=== PATIENT | male | born 1945 | race Caucasian/White ===

== ENCOUNTER 2023-11-03 10:45 | Emergency (ER) | payer MEDICARE, BC, SELFPAY ==
[2023-11-03 10:53] VITALS: BP 130/75
--- NOTE | 2023-11-03 11:09 | ED.GENMED ---
History of Present Illness
General
Chief Complaint: Fall
Source: patient and spouse
Exam Limitations: none
Time Seen by Provider: 11/03/23 10:59
Travel History
Have you had any contact with someone who has COVID-19?: No
Do you have any symptoms of coronavirus? Fever > 100 degrees, chills, cough, shortness of breath, sore throat, loss of taste or smell, muscle aches, or headache?: No
History of Present Illness
History of Present Illness:
78-year-old male tripped and fell causing a oblique abrasion to his forehead left hand laceration abrasion to left elbow and a contusion to left knee. No LOC. No syncope. Last tetanus is less than 5. He is on Eliquis. No neck pain no other
trauma. No severe general headache no vomiting no other neurologic symptoms. Head injury is described as relatively minor
Past History
Past History
ED Past Medical History: Arrthythmia (Atrial fibrillation), CVA and HTN
ED Past Surgical History: None
Social History
Tobacco: Non-smoker
Alcohol: None
Drug: None
Living: with family
Review of Systems
Review of Systems
All Other Systems: Not applicable
Respiratory: Reports no symptoms
Cardiac: Reports no symptoms
Phy Exam
Physical Exam
Physical Exam:
TRAUMA EXAM:
VITAL SIGNS: Vital signs reviewed, cooperative
DISTRESS: No active disease
EYES: Pupils reactive, no orbital trauma
NOSE: No deformity or epistaxis
FACE AND SCALP: No scalp trauma, external canals no blood. Contusion abrasion to the left forehead. No large hematoma.
NECK: Supple nontender
RESPIRATORY: No distress, breath sounds normal, no tender chest wall
CARDIAC: No murmur, pulses equal and strong
ABDOMEN: Soft nontender bowel sounds normal
SKIN: Superficial abrasion to the left elbow. T shaped jagged laceration at the distal fifth metacarpal on the palmar aspect of the left hand. 4 cm
EXTREMITIES: No severe bony tenderness. Laceration to the left ground hand. Decreased flexion at the left fifth digit but this is a trigger finger and old. No deep bony tenderness. No deep bony tenderness to the left elbow. Good range of motion.
NEUROLOGICAL: Alert, oriented, no motor deficits
PSYCH: Mood affect normal
Course
Orders/Labs/Results
Orders:
Orders
11/03/23 10:56
CT Head W/o Iv Contrast Urgent
Comment:
Reason For Exam: fall on eliquis
11/03/23 11:08
Hand, Left 3 View [CR Hand - Left Min 3 Views] Urgent
Comment:
Reason For Exam: trauma
11/03/23 12:05
Cephalexin Monohydrate [Keflex] 500 mg PO NOW STA
Vital Signs
Initial and Last Documented VS:
Initial Vital Signs
Temp Pulse Resp BP Pulse Ox
98.2 F 63 20 130/75 98
11/03/23 10:53 11/03/23 10:53 11/03/23 10:53 11/03/23 10:53 11/03/23 10:53
Last Documented Vital Signs
Temp Pulse Resp BP Pulse Ox
98.2 F 63 20 130/75 98
11/03/23 10:53 11/03/23 10:53 11/03/23 10:53 11/03/23 10:53 11/03/23 10:53
Procedures
Laceration Closure
Left Lateral Palmar Hand:
Status of Wound: imbedded foreign material
Size of Wound in cm: 4
Description of Wound Edges: ragged
Preparation: cleaned with saline and cleaned with Betadine
Anesthesia: 1% Lidocaine
Revision/Debridement: minor revision and irrigate-direct pressure
Wound exploration: extensive cleaning of contaminated wound, foreign body removed and no tendon involvement
Type of Closure: single layer closure
Skin Closure Material: 5-0 nylon
Number of sutures: 9
MDM/Problems Addressed
Differential Diagnosis Includes:
Mild head injury on Eliquis. Neurologically stable. We will get a CT scan. If stable given the nontoxic appearance lack of symptoms, does not warrant observation for second CT. Laceration will be repaired. We will x-ray the left hand. No other
bony abnormality.
*Radiology
Radiology exam reviewed: radiology read reviewed (Negative head CT) and other (Multiple small foreign bodies)
*Pulse Oximetry
Patient hypoxic: no
*Critical Care Note
Total Time (30-74mins, 75-104mins- exclusive of procedures): Not Applicable
ED Attending Note
-
Portions of this chart may have been created with voice recognition software.� Occasional wrong word or��sound alike� substitutions may have occurred due to the inherent limitations of voice recognition software.
Discharge Plan
Departure
Patient Disposition: Home (Routine Discharge)
Date of Disposition: 11/03/23
Time of Disposition: 12:07
Patient with high blood pressure during this ER visit?: Yes
Discharge Problem:
Left hand laceration, Minor head injury/anticoagulated, contusion, abrasion
Instructions: Head Injury in Adults (DC), Contusion (DC), Laceration Repair With Stitches (DC), Skin Abrasions (DC), BLOOD PRESSURE
Prescriptions:
New
cephalexin 500 mg capsule
500 mg PO QID 7 Days Qty: 28 0RF
No Action
trazodone 50 MG tablet
100 mg PO HS
amiloride 5 MG tablet
5 mg PO DAILY
dicyclomine 10 MG capsule
10 mg PO BID
vit C,Y-Ok-szqgs-lutein-zeaxan [PreserVision AREDS-2] 1 EACH capsule
1 ea PO BID
metoprolol succinate 50 MG tablet extended release 24 hr
50 mg PO BID
allopurinol 100 MG tablet
100 mg PO DAILY
potassium chloride [Klor-Con M20] 20 MEQ tablet,ER particles/crystals
20 meq PO BID
amlodipine 10 MG tablet
10 mg PO DAILY
hydrochlorothiazide 25 MG tablet
12.5 mg PO DAILY
cholecalciferol (vitamin D3) 2,000 UNITS tablet
2,000 units PO DAILY
atorvastatin 40 MG tablet
40 mg PO QPM Qty: 30 0RF
amlodipine 10 MG tablet
10 mg PO DAILY 0RF
cholecalciferol (vitamin D3) 2,000 UNITS tablet
2,000 units PO DAILY 0RF
apixaban [Eliquis] 5 MG tablet
5 mg PO BID 30 Days Qty: 60 0RF
Referrals:
Phil Valenzuela MD [Family Provider] - Follow up in 2-3 days
Interventions
Interventions:
*Risk Screen - Suicide Last Done: 11/03/23 10:53
*General Assessment Last Done: 11/03/23 10:53
*Neglect/Abuse Screening Last Done: 11/03/23 10:53
ED- Fall Risk Assessment Last Done: 11/03/23 11:01
*ED COVID-19 Vaccine History Last Done: 11/03/23 11:00
ED-Musculoskeletal Assessment Last Done: 11/03/23 11:01
ED- Neurological Assessment Last Done: 11/03/23 11:01
ED-Skin Assessment Last Done: 11/03/23 11:01
Discharge Date and Time
Print Language: SCOTTISH
[2023-11-03] MEDS: KEFLEX 500 MG PO (12:13)
== END 2023-11-03 12:23 | disposition home or self-care (01) ==
LOC: EMR 10:45
PROVIDERS: EMERGENCY PHYSICIAN Emergency Medicine; FAMILY PHYSICIAN Family Medicine
DX: S61.412A Laceration without foreign body of left hand, initial encounter (principal); S09.90XA Unspecified injury of head, initial encounter; S60.222A Contusion of left hand, initial encounter; S00.83XA Contusion of other part of head, initial encounter; S80.212A Abrasion, left knee, initial encounter; S00.81XA Abrasion of other part of head, initial encounter; S50.312A Abrasion of left elbow, initial encounter; W01.0XXA Fall on same level from slipping, tripping and stumbling without subsequent striking against object, initial encounter; I48.91 Unspecified atrial fibrillation; I10 Essential (primary) hypertension; Z79.01 Long term (current) use of anticoagulants; Z86.73 Personal history of transient ischemic attack (TIA), and cerebral infarction without residual deficits
CPT/HCPCS: 99284; 12001; 70450; 73130

== ENCOUNTER → 2024-02-15 08:20 | Outpatient (REF) | payer MEDICARE, BC, SELFPAY ==
[2024-02-15 09:41] LABS: Urine Albumin Negative (Neg - Trace); Urine Bilirubin Negative (Negative); Urine Character Clear (Clear); Urine Color Yellow; Urine Glucose Negative (Negative); Urine Ketone Negative (Negative); Urine Leukocyte Trace (Negative); Urine Nitrite Negative (Negative); Urine Occult Blood Negative (Negative); Urine Urobilinogen Negative (Neg - 1+)
[2024-02-15 09:48] LABS: Hematocrit 39.2 % (39.0-52.0); Hemoglobin 13.4 g/dL (13.0-18.0); Mean Corp Hgb Conc. 34.2 g/dL (33.0-37.0); Mean Corpuscular Hgb 30.6 pg (27.0-31.0); Mean Corpuscular Volume 89.5 fL (80.0-94.0); Mean Platelet Volume 9.9 fL (7.4-10.4); Platelet Count 132 10^3/uL (130-400); Red Blood Cell Count 4.38 10^6/uL (4.70-6.10); Red Cell Dist. Width 12.7 % (11.5-14.5); White Blood Cell Count 8.6 10^3/uL (4.8-10.8)
[2024-02-15 09:52] LABS: Urine Mucus Few
[2024-02-15 09:53] LABS: Urine Urothelial Cell 0-2 /LPF (FEW)
[2024-02-15 09:54] LABS: Urine Hyaline Cast 0-2 /LPF (0-2)
[2024-02-15 09:55] LABS: ALT (SGPT) 20 U/L (0-50); AST (SGOT) 27 U/L (17-59); Albumin 4.2 g/dl (3.5-5.0); Alkaline Phosphatase 63 U/L (38-126); Blood Urea Nitrogen 19 mg/dl (9-20); Calcium 9.3 mg/dl (8.4-10.2); Carbon Dioxide 35 mmol/L (22-30); Chloride 96 mmol/L (98-107); Glucose 103 mg/dl (70-99); HDL Cholesterol 57 mg/dl; LDL Cholesterol, Calculated 41 mg/dl; Magnesium 2.2 mg/dl (1.6-2.3); Phosphorus 3.1 mg/dl (2.5-4.5); Potassium 3.6 mmol/L (3.5-5.1); Sodium 139 mmol/L (135-145); Total Bilirubin 1.1 mg/dl (0.2-1.3); Total Cholesterol 113 mg/dl (50-199); Total Protein 6.3 g/dl (6.3-8.2); Triglyceride 77 mg/dl (10-149); Very Low Density Lipoprotein 15 mg/dl (0-30); eGFR > 60.00
[2024-02-15 10:13] LABS: % Basophils 0.5 % (0-2); % Eosinophils 1.2 % (0-6); % Immature Granulocytes 0.1 % (0-0.5); % Lymphocytes 52.3 % (20.5-51.1); % Monocytes 6.8 % (1.7-9.3); % Neutrophils 39.1 % (42.2-75.2); Absolute Eosinophils 0.1 10^3/uL (0-0.7); Absolute Lymphocytes 4.5 10^3/uL (1.2-3.4); Absolute Monocytes 0.6 10^3/uL (0.1-0.6); Absolute Neutrophils 3.4 10^3/uL (1.4-6.5); Nucleated Red Blood Cells % 0 % (-)
[2024-02-15 10:24] LABS: PSA, Total - Screen 1.13 ng/ml (0.0-4.0)
[2024-02-17 12:03] LABS: Intact PTH 90.8 pg/ml (13.6-85.8)
== END ==
LOC: HWLAB 08:20
PROVIDERS: ATTENDING PHYSICIAN Urology; FAMILY PHYSICIAN Family Medicine; REFERRING PHYSICIAN Internal Medicine Nephrology
DX: N20.0 Calculus of kidney (principal); E78.1 Pure hyperglyceridemia; D40.0 Neoplasm of uncertain behavior of prostate; Z12.5 Encounter for screening for malignant neoplasm of prostate; E55.9 Vitamin D deficiency, unspecified
CPT/HCPCS: 36415; 74018; 80053; 80061; 81003; 81015; 82306; 83735; 83970; 84100; 85025; 87086; G0103

== ENCOUNTER → 2024-05-17 09:57 | Outpatient (REF) | payer MEDICARE, BC, SELFPAY ==
[2024-05-17 10:50] LABS: % Basophils 0.6 % (0-2); % Immature Granulocytes 0.2 % (0-0.5); % Lymphocytes 44.8 % (20.5-51.1); % Monocytes 6.1 % (1.7-9.3); % Neutrophils 47.3 % (42.2-75.2); Absolute Basophils 0.1 10^3/uL (0-0.2); Absolute Eosinophils 0.1 10^3/uL (0-0.7); Absolute Lymphocytes 3.7 10^3/uL (1.2-3.4); Absolute Monocytes 0.5 10^3/uL (0.1-0.6); Absolute Neutrophils 3.9 10^3/uL (1.4-6.5); Hematocrit 40.3 % (39.0-52.0); Hemoglobin 13.1 g/dL (13.0-18.0); Mean Corp Hgb Conc. 32.5 g/dL (33.0-37.0); Mean Corpuscular Volume 92.4 fL (80.0-94.0); Mean Platelet Volume 9.9 fL (7.4-10.4); Nucleated Red Blood Cells % 0 % (-); Platelet Count 125 10^3/uL (130-400); Red Blood Cell Count 4.36 10^6/uL (4.70-6.10); Red Cell Dist. Width 13.1 % (11.5-14.5); White Blood Cell Count 8.2 10^3/uL (4.8-10.8)
[2024-05-17 10:53] LABS: ALT (SGPT) 21 U/L (0-50); AST (SGOT) 25 U/L (17-59); Albumin 3.9 g/dl (3.5-5.0); Alkaline Phosphatase 63 U/L (38-126); Blood Urea Nitrogen 17 mg/dl (9-20); Carbon Dioxide 35 mmol/L (22-30); Chloride 97 mmol/L (98-107); Glucose 125 mg/dl (70-99); Potassium 4.3 mmol/L (3.5-5.1); Sodium 136 mmol/L (135-145); Total Bilirubin 0.7 mg/dl (0.2-1.3); Total Protein 6.2 g/dl (6.3-8.2); eGFR > 60.00
[2024-05-17 11:57] LABS: Glycohemoglobin (HgbA1c) 5.3 % (4.0-5.6)
[2024-05-18 19:25] LABS: Beta-2-Microglobulin 2.3 mg/L (<=3.0)
[2024-05-19 22:45] LABS: Albumin 3.86 g/dL (3.75-5.01); Alpha 1 Globulin 0.23 g/dL (0.19-0.46); Alpha 2 Globulin 0.59 g/dL (0.48-1.05); Free Kappa Light Chains,Quant 19.65 mg/L (3.30-19.40); Free Lambda Light Chains,Quant 11.52 mg/L (5.71-26.30); IgA 182 mg/dL (68-408); IgG 786 mg/dL (768-1632); IgM 43 mg/dL (35-263); Immunofixation Electrophoresis IFE Done; Kappa/Lambda Fr Light Ratio 1.71 (0.26-1.65); Total Protein-Electrophoresis 6.1 g/dL (6.3-8.2)
== END ==
LOC: REG 09:57
PROVIDERS: ATTENDING PHYSICIAN Internal Medicine Hematology & Oncology; FAMILY PHYSICIAN Family Medicine
DX: R73.02 Impaired glucose tolerance (oral) (principal); I63.9 Cerebral infarction, unspecified; D68.59 Other primary thrombophilia
CPT/HCPCS: 36415; 80053; 82232; 82784; 83036; 83521; 84155; 84165; 85025; 86334

== ENCOUNTER → 2024-11-22 10:53 | Outpatient (REF) | payer MEDICARE, BC, SELFPAY ==
[2024-11-22 11:41] LABS: Hematocrit 39.8 % (39.0-52.0); Hemoglobin 13.2 g/dL (13.0-18.0); Mean Corp Hgb Conc. 33.2 g/dL (33.0-37.0); Mean Corpuscular Volume 90.9 fL (80.0-94.0); Platelet Count 137 10^3/uL (130-400); Red Cell Dist. Width 12.9 % (11.5-14.5)
[2024-11-22 13:15] LABS: Nucleated Red Blood Cells % 0 % (-)
[2024-11-26 07:08] LABS: 24 Hour Urine Total Volume Random mL; Urine Collection Length Random hr
[2024-11-27 13:47] LABS: Albumin 4.05 g/dL (3.75-5.01); Free Kappa Light Chains,Quant 16.05 mg/L (3.30-19.40); Free Lambda Light Chains,Quant 10.77 mg/L (5.71-26.30); Immunofixation Electrophoresis IFE Done; Kappa/Lambda Fr Light Ratio 1.49 (0.26-1.65); Total Protein-Electrophoresis 6.5 g/dL (6.3-8.2)
== END ==
LOC: REG 10:53
PROVIDERS: ATTENDING PHYSICIAN Internal Medicine Hematology & Oncology; FAMILY PHYSICIAN Family Medicine
DX: I63.9 Cerebral infarction, unspecified (principal); D68.59 Other primary thrombophilia
CPT/HCPCS: 36415; 82784; 83520; 83521; 84155; 84156; 84165; 85025; 86334; 86335

== ENCOUNTER → 2025-02-08 12:51 | Outpatient (REF) | payer MEDICARE, BC, SELFPAY | LOC: HWRAD 12:51 | PROVIDERS: ATTENDING PHYSICIAN Urology; FAMILY PHYSICIAN Family Medicine; REFERRING PHYSICIAN Internal Medicine Nephrology | DX: N20.0 Calculus of kidney (principal); R31.1 Benign essential microscopic hematuria | CPT/HCPCS: 74018 ==

== ENCOUNTER → 2025-05-04 14:42 | Outpatient (REF) | payer MEDICARE, BC, SELFPAY ==
[2025-05-04 16:01] LABS: Hematocrit 38.7 % (39.0-52.0); Hemoglobin 12.8 g/dL (13.0-18.0); Mean Corp Hgb Conc. 33.1 g/dL (33.0-37.0); Mean Corpuscular Volume 89.6 fL (80.0-94.0); Red Cell Dist. Width 13.0 % (11.5-14.5)
[2025-05-04 16:15] LABS: Nucleated Red Blood Cells % 0 % (-); Platelet Count 128 10^3/uL (130-400)
[2025-05-07 03:00] LABS: Free Kappa Light Chains,Quant 20.86 mg/L (3.30-19.40); Free Lambda Light Chains,Quant 13.57 mg/L (5.71-26.30); Kappa/Lambda Fr Light Ratio 1.54 (0.26-1.65)
== END ==
LOC: REG 14:42
PROVIDERS: ATTENDING PHYSICIAN Internal Medicine Hematology & Oncology; FAMILY PHYSICIAN Family Medicine
DX: C43.71 Malignant melanoma of right lower limb, including hip (principal); C44.229 Squamous cell carcinoma of skin of left ear and external auricular canal; I63.9 Cerebral infarction, unspecified; D68.59 Other primary thrombophilia; D64.9 Anemia, unspecified; C91.10 Chronic lymphocytic leukemia of B-cell type not having achieved remission; D69.59 Other secondary thrombocytopenia
CPT/HCPCS: 36415; 83521; 85025